=== PATIENT | female | born 1995 | race Caucasian/White ===

== ENCOUNTER 2017-01-29 07:21 | Day surgery (SDC) | payer BC, OTHER ==
[2017-01-28 14:15] VITALS: BMI 20.2
[~2017-01-29] VITALS: Ht 165.1 cm; Wt 68.5 kg
[2017-01-29] VITALS (11 sets, daily range): BP systolic 105–116; BP diastolic 62–75; PULSE 60–67; RESP 14–24; Ht 165.1 cm; Wt 68.5 kg
[~2017-01-29 07:21] MED LIST: POLYMYXIN/BACITRACIN 1L IRRIG IRR ONE
--- NOTE | 2017-01-29 07:51 | HPN ---
Date/Time of Note Date/Time of Note DATE: 01/29/17 TIME: 07:51 Interval H&P Admission Note Pt. seen H&P reviewed: No system changes MALIKA CLEANING DPM Jan 29, 2017 07:51
[2017-01-29] MEDS ORDERED: PROPOFOL 40 ML ONE (09:57)
[2017-01-29] MEDS ORDERED: FENTAnyl 50 MCG/ML VIAL ONE (09:57)
[2017-01-29] MEDS ORDERED: MIDAZOLAM 1 MG/ML 2 ML INJ ONE (09:57)
[2017-01-29] MEDS ORDERED: LIDOCAINE 2% (SDV) 5 ML INJ ONE (09:57)
[2017-01-29] MEDS ORDERED: LIDOCAINE 1% (MPF) 30 ML INJ ONE (09:58)
[2017-01-29] MEDS ORDERED: BUPIVACAINE 0.5% (SDV) 30 ML INJ ONE (09:58)
[2017-01-29] MEDS ORDERED: METOCLOPRAMIDE 10 MG INJ ONE (10:12)
[2017-01-29] MEDS ORDERED: DEXAMETHASONE 4 MG/ML 1 ML INJ ONE (10:12)
[2017-01-29] MEDS ORDERED: ONDANSETRON 4 MG INJ ONE (10:12)
[2017-01-29] MEDS ORDERED: EPHEDrine SULFATE 50 MG/5 ML SYG ONE (10:15)
[2017-01-29] MEDS ORDERED: BUPIVACAINE 0.5% (SDV) 30 ML INJ INJ ONE (10:16)
[2017-01-29] MEDS ORDERED: LIDOCAINE 1% (MPF) 30 ML INJ INJ ONE (10:16)
[2017-01-29] MEDS ORDERED: CEFAZOLIN 1 GM INJ ONE ×2 (10:17)
[2017-01-29] MEDS ORDERED: PROCHLORPERAZINE 10 MG INJ IV PRN (10:30)
[2017-01-29] MEDS ORDERED: FENTAnyl 50 MCG/ML VIAL IV PRN ×3 (10:30)
[2017-01-29] MEDS ORDERED: DIPHENHYDRAMINE 50 MG INJ IV PRN (10:30)
[2017-01-29] MEDS ORDERED: OXYCODONE/ACETAMINOPHEN (5/325) TAB PO PRN (10:30)
[2017-01-29] MEDS ORDERED: HYDROmorphONE (0.2 MG/ML) 10ML SYG IV PRN ×3 (10:30)
[2017-01-29] MEDS ORDERED: MEPERIDINE 25 MG INJ IV PRN (10:30)
[2017-01-29] MEDS ORDERED: ONDANSETRON 4 MG INJ IV PRN (10:30)
[2017-01-29] MEDS ORDERED: PROPOFOL 20 ML ONE (10:59)
[2017-01-29] MEDS ORDERED: KETOROLAC 30 MG INJ ONE (11:06)
[2017-01-29] MEDS ORDERED: HYDROCODONE/APAP (10/325) TAB PO PRN (14:00)
--- NOTE | 2017-01-31 09:56 | OPR ---
DATE OF OPERATION: 01/29/2017 PREOPERATIVE DIAGNOSIS: Painful bunionette deformity, left first metatarsophalangeal joint. POSTOPERATIVE DIAGNOSIS: Painful bunionette deformity, left first metatarsophalangeal joint. PROCEDURE PERFORMED: Bunionette correction, left fifth metatarsal. SURGEON: Neelima Mello DPM ANESTHESIOLOGIST: Carolyn Rodriguez MD ANESTHESIA: Local with IV sedation. DESCRIPTION OF PROCEDURE: The patient was brought into the operating room, placed on the table in a secure supine position. Cardiac monitoring, IV sedation, and an ankle pneumatic tourniquet were ut ilized for this case. Preoperatively, a total of 10 mL of 0.5% Marcaine plain mixed with 2% lidocai ne plain were infiltrated into the left foot in the form of a mini Tripp block. The foot and leg wer e then prepped and draped in the usual sterile manner. The ankle pneumatic tourniquet was inflated to 250 mmHg. Procedure #1 was then performed, left fifth metatarsal osteotomy. A 4 cm incision was placed along the left fifth metatarsophalangeal joint. The incision was deepened. Superficial bleeders were cau terized and bovied as necessary. The incision was then deepened down to the capsule. A linear caps ulotomy was performed. The capsule was reflected dorsally and plantarly exposing the hypertrophic l ateral condyle of the fifth metatarsal, which was resected with a power sagittal saw. Next, a K-wir e was inserted from lateral to medial, serving as an axis guide. A chevron osteotomy was performed 1 cm proximal to the fifth metatarsophalangeal joint. The osteotomy was [id number]. The c apital fragment was translocated medially 2 mm and fixated with a 3.0 mm x 12 mm cannulated [place] screw. Due to the nature of the hypermobility of the fifth metatarsal and flexibility of the deform ity, a 0.062 Ji wire was inserted at the base of the fifth metatarsal from lateral to medial, closing the intermetatarsal space. The surgical site was irrigated copiously with sterile saline m ixed with bacitracin solution. The capsule was reapproximated with 3-0 Vicryl simple interrupted sutures. The subcutaneous tissue was closed with 4-0 Vicryl simple interrupted sutures and the skin edges were reapproximated with a running 3-0 Prolene subcuticular stitch. Dressing consisted of tincture of benzoin, 1/4-inch Steri- Strips, Xeroform gauze, 4 x 4 gauze, 4-inch Kerlix roll, 2-inch Coban into a semi-compressive dressi ng. Immediate hyperemia was noted to all digits of the left foot. The patient tolerated the above procedure well, left the OR with vital signs stable and satisfactory. The patient will follow up 1 week postop. Dictated By: NEELIMA OROURKE/ANANT Conf#: [id number] DID#: [id number]
== END 2017-01-29 13:23 | disposition home or self-care (01) ==
LOC: SDS 07:21
PROVIDERS: ATTEND Podiatrist Primary Podiatric Medicine
DX: M21.612 Bunion of left foot (principal)
CPT/HCPCS: 28110; 84703; C1713; J0690; J1100; J1885; J2250; J2405; J2765; J3010; Z7512; Z7610